=== PATIENT | female | born 1990 | race Caucasian/White ===

== ENCOUNTER 2016-12-24 16:35 | Observation (INO) | payer OTHER ==
[~2016-12-24] VITALS: Ht 167.6 cm; Wt 112.9 kg
[2016-12-24 17:39] VITALS: BP 126/66
== END 2016-12-25 | disposition home or self-care (01) ==
LOC: MLD 16:35
PROVIDERS: ADMIT Obstetrics & Gynecology; ATTEND Obstetrics & Gynecology
DX: O36.8190 Decreased fetal movements, unspecified trimester, not applicable or unspecified (principal); Z3A.00 Weeks of gestation of pregnancy not specified
CPT/HCPCS: 76819; G0378; Q0092